=== PATIENT | female | born 1960 | race Two or more races ===

== ENCOUNTER 2021-02-19 16:50 | Emergency (ER) | payer MEDICAID, OTHER ==
[~2021-02-19] VITALS: Ht 170.2 cm; Wt 105.7 kg
[2021-02-19 20:25] VITALS: BP 160/99
== END 2021-02-19 21:38 | disposition left against medical advice (07) ==
LOC: EDBD 16:50 → EDSEX 16:50 → ER 16:50
DX: L03.116 Cellulitis of left lower limb (principal); L03.115 Cellulitis of right lower limb; L97.828 Non-pressure chronic ulcer of other part of left lower leg with other specified severity; L97.818 Non-pressure chronic ulcer of other part of right lower leg with other specified severity; F17.210 Nicotine dependence, cigarettes, uncomplicated